=== PATIENT | female | born 1980 | race Caucasian/White ===

== ENCOUNTER 2020-08-17 06:03 | Day surgery (SDC) | payer BC, SELFPAY ==
[2020-08-14 09:39] LABS: BASOPHILS ABSOLUTE AUTO 0.08 K/mm3 (0.00-0.23); BASOPHILS PERCENT AUTO 1 % (0-2); EOSINOPHILS ABSOLUTE AUTO 0.47 K/mm3 (0.00-0.68); EOSINOPHILS PERCENT AUTO 5 % (0-6); Hematocrit 36.8 % (33.0-51.0); Hemoglobin 12.4 g/dL (11.5-16.0); IMMATURE GRAN ABSOLUTE AUTO 0.02 K/mm3 (0.00-0.10); IMMATURE GRAN PERCENT AUTO 0 % (0-1); LYMPHOCYTES ABSOLUTE AUTO 3.11 K/mm3 (0.84-5.20); LYMPHOCYTES PERCENT AUTO 35 % (21-46); MONOCYTES PERCENT AUTO 7 % (4-13); Mean Corpuscular HGB Conc 33.7 g/dL (31.5-36.5); Mean Corpuscular Volume 95 fL (80-100); NEUTROPHILS ABSOLUTE AUTO 4.66 K/mm3 (1.96-9.15); NEUTROPHILS PERCENT AUTO 52 % (41-73); Platelet Count 302 K/mm3 (150-400); RDW Coefficient Variation 12.5 % (11.7-14.2); RDW Standard Deviation 43.1 fL (35.1-46.3); Red Blood Cell Count 3.87 M/mm3 (3.80-5.20); White Blood Cell Count 8.94 K/mm3 (4.00-11.30)
[2020-08-14 09:43] LABS: Anion Gap 4 mmol/L (6-16); Blood Urea Nitrogen 7 mg/dL (8-24); Bun/Creatinine Ratio 10.3 (12.0-20.0); CO2, Blood 26 mmol/L (21-32); Calcium, Blood 8.9 mg/dL (8.5-10.1); Chloride, Blood 106 mmol/L (98-108); Creatinine, Blood 0.68 mg/dL (0.40-1.00); Glomerular Filtration Rate >60 (60-); Glucose, Blood 92 mg/dL (70-99); Potassium, Blood 3.9 mmol/L (3.5-5.5); Sodium, Blood 136 mmol/L (136-145)
[~2020-08-17] VITALS: Ht 152.4 cm; Wt 94.8 kg
[~2020-08-17 06:03] MED LIST: DICL75ER PO; FAMO40 PO; KETO200 PO; LORTAB 10 MG-3473 ML PO; VENL75ER PO; VITAMIN D310 MC4 PO
--- NOTE | 2020-08-17 07:09 | NUR ---
Ambulatory in Day Surgery History, Chart, Medications and Allergies reviewed before start of procedure.Patient confirms NPO status and agrees with scheduled surgery. Patient reports completing Chlorhexadine shower X2 prior to admission to hospital.Surgical site prepped with 2% Chlorhexidine cloth wipe.
--- NOTE | 2020-08-17 11:58 | NUR ---
ADMIT PT ARRIVED TO UNIT AT APROX 1145 FROM PACU POD 0 LUCIO LAP HYSTER. LAP SITES X'S 4 WITH WOUND GLUE C/D/I, JOSELITO PAD WITH SCANT AMT BLOOD PRESENT. STEVENS PATENT, DRAINING CLEAR YELLOW URINE. PT REPORTS "PERIOD CRAMPING" PAIN BUT STATES IT IS TOLERABLE AT THIS TIME, KPAD PLACED FOR COMFORT. PT DENIES N/V, GIVEN CLEAR LIQUIDS.
--- NOTE | 2020-08-17 18:38 | NUR ---
SHIFT SUMMARY PT POD 0 LUCIO LAP HYSTER. LAP SITES X'S 4 C/D/I-WOUND GLUE IN PLACE. SCANT AMT BLOOD PRESENT ON JOSELITO PAD. PAIN MANAGED WITH ORAL PAIN MEDICATION. STEVENS PATENT, DRAINING CLEAR YELLOW URINE. TOLERATING REGULAR DIET.
[2020-08-18 04:35] LABS: BASOPHILS ABSOLUTE AUTO 0.07 K/mm3 (0.00-0.23); BASOPHILS PERCENT AUTO 1 % (0-2); EOSINOPHILS ABSOLUTE AUTO 0.18 K/mm3 (0.00-0.68); EOSINOPHILS PERCENT AUTO 1 % (0-6); Hematocrit 32.2 % (33.0-51.0); Hemoglobin 10.7 g/dL (11.5-16.0); IMMATURE GRAN ABSOLUTE AUTO 0.04 K/mm3 (0.00-0.10); IMMATURE GRAN PERCENT AUTO 0 % (0-1); LYMPHOCYTES ABSOLUTE AUTO 2.62 K/mm3 (0.84-5.20); LYMPHOCYTES PERCENT AUTO 20 % (21-46); MONOCYTES ABSOLUTE AUTO 0.84 K/mm3 (0.16-1.47); MONOCYTES PERCENT AUTO 6 % (4-13); Mean Corpuscular HGB 31.5 pg (26.0-34.0); Mean Corpuscular HGB Conc 33.2 g/dL (31.5-36.5); Mean Corpuscular Volume 95 fL (80-100); Mean Platelet Volume 9.9 fL (9.1-12.4); NEUTROPHILS ABSOLUTE AUTO 9.41 K/mm3 (1.96-9.15); NEUTROPHILS PERCENT AUTO 72 % (41-73); Platelet Count 257 K/mm3 (150-400); RDW Coefficient Variation 12.8 % (11.7-14.2); RDW Standard Deviation 43.9 fL (35.1-46.3); White Blood Cell Count 13.16 K/mm3 (4.00-11.30)
--- NOTE | 2020-08-18 05:04 | NUR ---
SHIFT SUMMARY PT IS A/O X4. TOLERATING PO INTAKE W/O NAUSEA. STEVENS IN PLACE OVERNIGHT; WILL D/C THIS AM. IV FLUIDS INFUSING OVERNIGHT. PAIN MANAGED WITH OXY X1. PT REPORTS PASSING FLATUS OVERNIGHT. MINIMAL BLEEDING ON JOSELITO PAD. PT WAS ABLE TO STAND AND WALK IN ROOM WITH SBA. WEARING ABD BINDER FOR COMFORT. PT C/O DISCOMFORT IN L EYE; PROVIDED WITH EYE DROPS PER ORDERS WHICH PT SAID GREATLY HELPED WITH THE DISCOMFORT. PT USING HOME CPAP WHILE ASLEEP. RESTING IN BED AT THIS TIME, CALL LIGHT IN REACH.
--- NOTE | 2020-08-18 07:45 | NUR ---
pt reports min pain 2-07/26 passing gas pina removed this am has not voided will put extra pads in bathroom no nausea thia am silvina food
--- NOTE | 2020-08-18 10:30 | NUR ---
pt voided scant amt of vag bleeding
--- NOTE | 2020-08-18 11:23 | NUR ---
wonderedita by to see pt
[2020-08-18] MEDS ORDERED: Percocet 5-3251 EACH PO (11:27)
[2020-08-18] MEDS ORDERED: IBUP800 PO (11:28)
[2020-08-18] MEDS ORDERED: PROM25 PO (11:29)
[2020-08-18] MEDS ORDERED: ESTR2 PO (11:30)
[2020-08-18] MEDS ORDERED: SENN187 PO (11:32)
[2020-08-18] MEDS ORDERED: DOCU100 PO (11:32)
[2020-08-18] MEDS ORDERED: DULCOLAX400 MG/51 PO (11:32)
--- NOTE | 2020-08-18 12:00 | NUR ---
discharge instructions reviewed with pt verbalized rx given pt awaitint ride pt dressed
--- NOTE | 2020-08-18 12:28 | NUR ---
wc escort to car with spouse no acute changes
== END 2020-08-18 12:28 | disposition home or self-care (01) ==
LOC: ORSCMMR 06:03 → SURS 06:03 → ORSCMMR 06:04 → ORD 07:30 → ORSCMMR 07:30 → SURS 11:30 → ORSCMMR 08-18 12:28
PROVIDERS: Obstetrics & Gynecology
PROC: 0UT94ZZ Resection of Uterus, Percutaneous Endoscopic Approach (ICD-10-PCS; principal; 2020-08-17 07:30)
PROC: 0UT24ZZ Resection of Bilateral Ovaries, Percutaneous Endoscopic Approach (ICD-10-PCS; principal; 2020-08-17 07:30)
PROC: 0UT74ZZ Resection of Bilateral Fallopian Tubes, Percutaneous Endoscopic Approach (ICD-10-PCS; principal; 2020-08-17 07:30)
PROC: 8E0W4CZ Robotic Assisted Procedure of Trunk Region, Percutaneous Endoscopic Approach (ICD-10-PCS; principal; 2020-08-17 07:30)
DX: N92.0 Excessive and frequent menstruation with regular cycle (principal); N94.6 Dysmenorrhea, unspecified; D25.9 Leiomyoma of uterus, unspecified; N73.6 Female pelvic peritoneal adhesions (postinfective); N83.292 Other ovarian cyst, left side; N83.291 Other ovarian cyst, right side; G47.33 Obstructive sleep apnea (adult) (pediatric); E66.01 Morbid (severe) obesity due to excess calories; Z68.37 Body mass index [BMI] 37.0-37.9, adult; Z79.899 Other long term (current) drug therapy
CPT/HCPCS: 58573; S2900; 36415; 80048; 85025; 86850; 86900; 86901; 88307; A9270; J0690; J1100; J1885; J2250; J2405; J2704; J3010; J7120

== ENCOUNTER → 2024-01-08 | Outpatient (CLI) | payer BC ==
[~2024-01-08] MED LIST changes: +DOCU100 PO; +DULCOLAX400 MG/51 PO; +ESTR2 PO; +IBUP800 PO; +PROM25 PO; +Percocet 5-3251 EACH PO; +SENN187 PO
[2024-01-08 15:07] LABS: Stool Occult Bld Immuno 1 Negative (NEGATIVE); Stool Occult Bld Immuno 2 Negative (NEGATIVE); Stool Occult Bld Immuno 3 Negative (NEGATIVE)
== END | disposition home or self-care (01) ==
LOC: LAB 08:00 → LAB SHORT 08:00
PROVIDERS: Registered Nurse Oncology
DX: D50.9 Iron deficiency anemia, unspecified (principal)
CPT/HCPCS: 82274